=== PATIENT | male | born 1975 | race Hispanic/Latino ===

== ENCOUNTER 2016-12-19 20:41 | Observation (INO) | payer MEDICAID, OTHER ==
[2016-12-19 20:46] VITALS: BMI 19.8
[2016-12-19 20:48] VITALS: RESP 18; TEMP 98.3
[2016-12-19] MEDS ORDERED: Sodium Chloride 0.9% 1,000 ML IV STA (21:07)
[2016-12-19 21:18] LABS: ADD MANUAL DIFF? NO
[2016-12-19 21:27] LABS: BASO # 0.03 K/mm3 (0.0-2.0); BASO % 0.4 % (0.0-3.0); EOS # 0.1 (0.0-0.7); EOS % 1.2 % (1.5-5.0); GRAN # 3.81 (1.4-6.5); GRAN % 51.8 % (50.0-68.0); LYMPH # 2.7 (1.2-3.4); LYMPH % 36.9 % (22.0-35.0); MEAN CELL VOLUME 91.1 fL (80.0-105.0); MEAN CORPUSCULAR HEMOGLOBIN 31.8 pg (25.0-35.0); MEAN CORPUSCULAR HGB CONC 34.9 g/dl (31.0-37.0); MEAN PLATELET VOLUME 11.7 fl (7.0-11.0); MONO # 0.7 (0.1-0.6); MONO % 9.7 % (1.0-6.0); PLATELET COUNT 177 10^3/uL (120.0-450.0); RED CELL DISTRIBUTION WIDTH 13.2 % (11.5-14.5); WHITE BLOOD COUNT 7.4 10^3/ul (4.5-11.0)
--- NOTE | 2016-12-19 21:35 | ED PDOC ---
Arrival/HPI <Abel Finn - Last Filed: 12/19/16 22:57> - General Historian: Patient - History of Present Illness Time/Duration: 1 week Symptom Onset: Gradual Symptom Course: Worsening Quality: Aching Severity Level: 5 <Josefina Heaton - Last Filed: 12/20/16 01:50> - General Chief Complaint: GI Problem Time Seen by Provider: 12/19/16 20:54 - History of Present Illness Narrative History of Present Illness (Text): 12/19/16 21:31 40-year-old male presents today with abdominal pain nausea vomiting and diarrhea. Patient states last week he was constipated and was taking Colace and now he's having diarrhea nausea and vomiting and complaining of some mild abdominal pain. Denies fevers or chills denies urinary symptoms. Denies dizziness. Patient states that he's been feeling more fatigued than usual. No other complaints (Josefina Heaton) Past Medical History - Provider Review Nursing Documentation Reviewed: Yes - Travel History Have you recently traveled outside [place] w/in the past 3 mons?: No - Past History Past History: Non-Contributing - Infectious Disease Hx of Infectious Diseases: None - Tetanus Immunization Tetanus Immunization: Up to Date - Past Medical History Past Medical History: No Previous - Cardiac Hx Cardiac Disorders: No Hx Hypertension: No - Pulmonary Hx Respiratory Disorders: No Hx Tuberculosis: No - Neurological Hx Neurological Disorder: No HX Cerebrovascular Accident: No Hx Seizures: No - HEENT Hx HEENT Disorder: No - Renal Hx Renal Disorder: No - Endocrine/Metabolic Hx Endocrine Disorders: No - Hematological/Oncological Hx Blood Disorders: No Hx Cancer: No - Integumentary Hx Dermatological Disorder: No - Musculoskeletal/Rheumatological Hx Musculoskeletal Disorders: No Hx Falls: No - Gastrointestinal Hx Gastrointestinal Disorders: No - Genitourinary/Gynecological Hx Genitourinary Disorders: No Hx Sexually Transmitted Diseases: No - Psychiatric Hx Emotional Abuse: No Hx Physical Abuse: No Hx Substance Use: No Other/Comment: alcohol abuse - Past Surgical History Past Surgical History: No Previous - Surgical History Hx Orthopedic Surgery: Yes (L leg surgery) Other/Comment: SX FOR BROKEN NOSE .SX FOR LACERATION LIVER CAUTERIZATION - Anesthesia Hx Anesthesia: Yes Hx Anesthesia Reactions: No - Suicidal Assessment Feels Threatened In Home Enviroment: No <Josefina Heaton - Last Filed: 12/20/16 01:50> Family/Social History - Physician Review Nursing Documentation Reviewed: Yes Family/Social History: Unknown Family HX Smoking Status: Light Smoker < 10 Cigarettes Daily Hx Alcohol Use: Yes Frequency of alcohol use: Few days per week Hx Substance Use: No Hx Substance Use Treatment: No <Josefina Heaton - Last Filed: 12/20/16 01:50> Allergies/Home Meds <Abel Finn - Last Filed: 12/19/16 22:57> <Josefina Heaton - Last Filed: 12/20/16 01:50> Allergies/Adverse Reactions: Allergies No Known Allergies Allergy (Verified 09/05/16 14:22) Home Medications: Home Meds Medication Instructions Recorded Confirmed No Known Home Med 12/19/16 12/19/16 Review of Systems - Review of Systems Constitutional: Fatigue. absent: Fevers Respiratory: absent: SOB, Cough Cardiovascular: absent: Chest Pain, Palpitations Gastrointestinal: Abdominal Pain, Diarrhea, Nausea, Vomiting Genitourinary Male: absent: Dysuria, Frequency Musculoskeletal: absent: Arthralgias, Back Pain, Neck Pain Skin: absent: Rash, Pruritis Neurological: absent: Dizziness Psychiatric: absent: Anxiety, Depression <Josefina Heaton - Last Filed: 12/20/16 01:50> Physical Exam Vital Signs Reviewed: Yes Temperature: Afebrile Blood Pressure: Hypertensive Pulse: Regular Respiratory Rate: Normal Appearance: Positive for: Well-Appearing, Non-Toxic, Comfortable Pain Distress: None Mental Status: Positive for: Alert and Oriented X 3 - Systems Exam Head: Present: Atraumatic Mouth: Present: Moist Mucous Membranes Respiratory/Chest: Present: Clear to Auscultation, Good Air Exchange. No: Respiratory Distress, Accessory Muscle Use Cardiovascular: Present: Regular Rate and Rhythm, Normal S1, S2. No: Murmurs Abdomen: Present: Tenderness (minimal lower abdominal tenderness), Normal Bowel Sounds. No: Distention, Peritoneal Signs, Rebound, Guarding, McBurney's Point Tender Back: Present: Normal Inspection Upper Extremity: Present: Normal ROM Lower Extremity: Present: Normal ROM. No: Edema Neurological: Present: GCS=15 Skin: Present: Warm, Dry, Normal Color. No: Rashes Psychiatric: Present: Alert, Oriented x 3 <Josefina Heaton - Last Filed: 12/20/16 01:50> Vital Signs Temp Pulse Resp BP Pulse Ox 12/19/16 20:48 98.3 F 94 H 18 144/93 H 97 Medical Decision Making <Abel Finn - Last Filed: 12/19/16 22:57> <Josefina Heaton Jonah - Last Filed: 12/20/16 01:50> ED Course and Treatment: 12/19/16 21:35 Patient is nontoxic well appearing with stable vital signs presenting with [ severe] abdominal pain CBC wnl CMP wnl Urinalysis wnl CAT scan:FINDINGS: Lower thorax: Heart size is normal. There is a small hiatal hernia. There is minimal scarring at the lung bases. ABDOMEN: Liver: There are multiple metallic fragments in the right lobe of the liver. Gallbladder and bile ducts: unremarkable Pancreas: unremarkable Spleen: unremarkable Adrenals: unremarkable Kidneys and ureters: unremarkable Stomach and bowel: Stomach is incompletely distended which accentuates the gastric wall.. Rotation is normal. Duodenal wall and fold thickening. There is proximal jejunal wall and fold thickening. Proximal jejunum is mildly distended with fluid. Fluid distention decreases distally. Terminal ileum is mildly distended with wall thickening. Appendix is unremarkable.Colon is incompletely distended which limits evaluation. Appendix: See above. PELVIS: Bladder: The bladder is almost empty. There is bladder wall thickening. Reproductive: Seminal vesicles and prostate are unremarkable. ABDOMEN and PELVIS: Intraperitoneal space: There is no free air or free fluid. Bones/joints: There are no acute osseous abnormalities Soft tissues: unremarkable Vasculature: Vascular structures are unremarkable. Lymph nodes: There is no pathologic adenopathy. IMPRESSION: Enteritis no obstruction; bladder wall thickening more suggestive of inflammation than underdistention; metallic foreign bodies in the liver Additional findings as described above. EKG is normal sinus rhythm at 70 bpm normal axis normal intervals no ST elevations NS Iv bolus zofran for nausea Patient reassessment: pt feeling better after medications; vitals stable Discussed all results with patient in depth. Advised increasing fluids and Brat diet follow-up with the primary care physician within the next 2 days advised immediate return if symptoms worsen persist or if new concerning symptoms develop Impression: Abdominal pain, diarrhea Motrin every 6 hours as needed for pain Increase fluids Follow up with primary care physician within the next 2 days Follow up with the GI doctor within the next 2 days. Return immediately if symptoms worsen persist or if new symptoms develop: High fevers, increasing pain, vomiting, diarrhea or any other concerning symptoms develop (Josefina Heaton) - Lab Interpretations Lab Results: 12/19/16 21:10 12/19/16 21:10 Lab Results 12/19/16 21:26: Urine Color Yellow, Urine Appearance Sl cloudy, Urine pH 6.0, Ur Specific [place] 1.015, Urine Protein Negative, Urine Glucose (UA) Negative, Urine Ketones Negative, Urine Blood Negative, Urine Nitrate Negative, Urine Bilirubin Negative, Urine Urobilinogen 0.2, Ur Leukocyte Esterase Negative, Urine RBC 0 - 2, Urine WBC Negative, Ur Epithelial Cells 0 - 2, Urine Bacteria Few 12/19/16 21:10: WBC 7.4 D, RBC 4.72, Hgb 15.0, Hct 43.0, MCV 91.1, MCH 31.8, MCHC 34.9, RDW 13.2, Plt Count 177, MPV 11.7 H, Gran % 51.8, Lymph % (Auto) 36.9 H, [place] % (Auto) 9.7 H, Eos % (Auto) 1.2 L, Baso % (Auto) 0.4, Gran # 3.81 , Lymph # 2.7, [place] # 0.7 H, Eos # 0.1, Baso # 0.03 12/19/16 21:10: Sodium 133, Potassium 3.8, Chloride 92 L, Carbon Dioxide 31, Anion Gap 14, BUN 6 L, Creatinine 0.6, Est GFR ( Amer) > 60, Est GFR (Non -Af Amer) > 60, Random Glucose 96, Calcium 9.2, Total Bilirubin 1.3, AST 40, ALT 36, Alkaline Phosphatase 85, Total Protein 7.6, Albumin 4.2, Globulin 3.4, Albumin/Globulin Ratio 1.2, Lipase 50 - RAD Interpretation Radiology Orders: 12/19/16 21:13 ABD & PELVIS IV CONTRAST ONLY [CT] Stat - Medication Orders Current Medication Orders: Discontinued Medications Sodium Chloride (Sodium Chloride 0.9%) 1,000 mls @ 999 mls/hr IV .Q1H1M STA Stop: 12/19/16 22:07 Last Admin: 12/19/16 21:24 Dose: 999 mls/hr Iohexol (Omnipaque 350 100 Ml) Confirm Administered Dose 350 mg .ROUTE .STK-MED ONE Stop: 12/19/16 23:01 ED OBSERVATION <HumaAbel - Last Filed: 12/19/16 22:57> Discharge: Yes Date of observation admission: 12/19/16 Time of observation admission: 21:10 <Josefina Heaton - Last Filed: 12/20/16 01:50> - Observation admission statement Patient is being placed in observation because:: abdominal pain (Josefina Heaton) - Goals of Observation Goals of observation are:: improvement in symptoms (Josefina Heaton) - Progress Note Progress Note: 12/19/16 23:15 pt resting comfortably; no distress 12/20/16 01:35 pt in no distress. vitals stable; all results discussed with patient. (Josefina Heaton) - PA / DIRECTOR [employer] / Resident Statement MD/DO has reviewed & agrees with the documentation as recorded. <HumaAbel - Last Filed: 12/19/16 22:57> Disposition/Present on Arrival <Abel Finn - Last Filed: 12/19/16 22:57> - Present on Arrival Any Indicators Present on Arrival: No History of DVT/PE: No History of Uncontrolled Diabetes: No Urinary Catheter: No History of Decub. Ulcer: No History Surgical Site Infection Following: None - Disposition Have Diagnosis and Disposition been Completed?: Yes Disposition Time: 01:47 Patient Plan: Discharge <Josefina Heaton - Last Filed: 12/20/16 01:50> - Disposition Diagnosis: Abdominal pain, Diarrhea Disposition: HOME/ ROUTINE Patient Problems: Current Active Problems Problem Status Onset Abdominal pain Acute Diarrhea Acute Condition: GOOD Discharge Instructions (ExitCare): Acute Nausea and Vomiting (ED), Acute Diarrhea (ED), Acute Abdominal Pain (ED) Additional Instructions: Motrin every 6 hours as needed for pain Increase fluids Follow up with primary care physician within the next 2 days Follow up with the GI doctor within the next 2 days. Return immediately if symptoms worsen persist or if new symptoms develop: High fevers, increasing pain, vomiting, diarrhea or any other concerning symptoms develop Referrals: Sergio OLEA,MD Kam [Medical Doctor] - Follow up with primary Zeeshan Vega MD [Staff Provider] - Follow up with primary [facility] [place] [Outside] - Follow up with primary Forms: WORK NOTE
[2016-12-19 21:36] LABS: ALB/GLOB RATIO 1.2 (1.1-1.8); ALKALINE PHOSPHATASE 85 U/L (38-133); ALT/SGPT 36 U/L (7-56); AST/SGOT 40 U/L (15-59); BILIRUBIN,TOTAL 1.3 mg/dL (0.2-1.3); BLOOD UREA NITROGEN 6 mg/dL (7-21); CALCIUM 9.2 mg/dL (8.4-10.5); CARBON DIOXIDE 31 mmol/L (21-33); CHLORIDE 92 mmol/L (98-107); GFR AFRICAN-AMERICAN > 60; GLUCOSE,RANDOM 96 mg/dL (70-110); LIPASE 50 U/L (23-300); POTASSIUM 3.8 mmol/L (3.6-5.0); SODIUM 133 mmol/L (132-148); TOTAL PROTEIN 7.6 g/dL (5.8-8.3)
[2016-12-19 21:55] LABS: URINE BILIRUBIN NEGATIVE (NEGATIVE); URINE GLUCOSE (UA) NEGATIVE (NEGATIVE); URINE KETONE NEGATIVE (NEGATIVE); URINE UROBILINOGEN 0.2 E.U./dL (<1 E.U./dL)
[2016-12-19 21:59] LABS: URINE APPEARANCE SL CLOUDY (CLEAR); URINE COLOR YELLOW (YELLOW)
[2016-12-19 22:31] LABS: URINE BLOOD NEGATIVE (NEGATIVE); URINE LEUKOCYTE ESTERASE NEGATIVE Leu/uL (NEGATIVE); URINE PROTEIN NEGATIVE mg/dL (<30 mg/dL)
[2016-12-19 22:33] LABS: URINE BACTERIA FEW (NEG); URINE EPITHELIAL CELLS 0 - 2 /hpf (0-5); URINE RBC 0 - 2 /hpf (0-2); URINE WBC NEGATIVE /hpf (0-6)
[2016-12-19] MEDS ORDERED: Iohexol 350 MG/100 ML VIAL ONE (23:00)
--- NOTE | 2016-12-20 01:18 | CT ---
EXAM: CT Abdomen and Pelvis With Intravenous Contrast CLINICAL HISTORY: 40 years old, male; Signs and symptoms; Vomiting; Additional info: Abd pain/vomiting/diarrhea TECHNIQUE: Axial computed tomography images of the abdomen and pelvis with intravenous contrast. This CT exam was performed using one or more of the following dose reduction techniques: automated exposure control, adjustment of the mA and/or kV according to patient size, and/or use of iterative reconstruction technique. Coronal and sagittal reformatted images were created and reviewed. CONTRAST: 96 mL of OMNI 350 administered intravenously. EXAM DATE/TIME: 12/19/2016 9:13 PM COMPARISON: There are no prior studies for comparison. FINDINGS: Lower thorax: Heart size is normal. There is a small hiatal hernia. There is minimal scarring at the lung bases. ABDOMEN: Liver: There are multiple metallic fragments in the right lobe of the liver. Gallbladder and bile ducts: unremarkable Pancreas: unremarkable Spleen: unremarkable Adrenals: unremarkable Kidneys and ureters: unremarkable Stomach and bowel: Stomach is incompletely distended which accentuates the gastric wall.. Rotation is normal. Duodenal wall and fold thickening. There is proximal jejunal wall and fold thickening. Proximal jejunum is mildly distended with fluid. Fluid distention decreases distally. Terminal ileum is mildly distended with wall thickening. Appendix is unremarkable.Colon is incompletely distended which limits evaluation. Appendix: See above. PELVIS: Bladder: The bladder is almost empty. There is bladder wall thickening. Reproductive: Seminal vesicles and prostate are unremarkable. ABDOMEN and PELVIS: Intraperitoneal space: There is no free air or free fluid. Bones/joints: There are no acute osseous abnormalities Soft tissues: unremarkable Vasculature: Vascular structures are unremarkable. Lymph nodes: There is no pathologic adenopathy. IMPRESSION: Enteritis no obstruction; bladder wall thickening more suggestive of inflammation than underdistention; metallic foreign bodies in the liver Additional findings as described above.
[2016-12-20 01:59] VITALS: BP 118/70; PULSE 70; O2SAT 99
--- NOTE | 2016-12-20 12:07 | CARD ---
APPROVED REPORT EKG Measurement Heart [id number] <Conclusion> Normal sinus rhythm Possible Left atrial enlargement Borderline ECG
== END 2016-12-20 01:49 | disposition home or self-care (01) ==
LOC: ED 20:41 → EROBSV 21:10
PROVIDERS: ADMIT Emergency Medicine; ATTEND Emergency Medicine
DX: R10.9 Unspecified abdominal pain (principal); R19.7 Diarrhea, unspecified; F17.210 Nicotine dependence, cigarettes, uncomplicated
CPT/HCPCS: 74177; 80053; 81001; 83690; 85025; 87086; 93005; 96360; 99284; G0378; J7040; Q9967

== ENCOUNTER 2017-01-09 19:11 | Emergency (ER) | payer MEDICAID, OTHER ==
[2017-01-09 19:26] VITALS: BMI 19.1
[2017-01-09] MEDS ORDERED: Sodium Chloride 0.9% 1,000 ML IV STA (19:26)
[2017-01-09 20:36] LABS: ALB/GLOB RATIO 1.3 (1.1-1.8); ALBUMIN 4.2 g/dL (3.0-4.8); ALT/SGPT 29 U/L (7-56); AST/SGOT 33 U/L (15-59); BLOOD UREA NITROGEN 8 mg/dL (7-21); CALCIUM 9.4 mg/dL (8.4-10.5); GFR AFRICAN-AMERICAN > 60; GFR NON-AFRICAN AMERICAN > 60
[2017-01-09 20:42] LABS: HEMOGLOBIN 15.6 gm/dL (14.0-18.0); RBC 5.06 10^6/uL (3.5-6.1); WHITE BLOOD COUNT 6.9 10^3/ul (4.5-11.0)
[2017-01-09 20:43] LABS: BASO # 0.02 K/mm3 (0.0-2.0); BASO % 0.3 % (0.0-3.0); EOS # 0.1 (0.0-0.7); EOS % 1.5 % (1.5-5.0); GRAN # 3.94 (1.4-6.5); GRAN % 57.5 % (50.0-68.0); LYMPH # 2.2 (1.2-3.4); LYMPH % 31.4 % (22.0-35.0); MEAN CELL VOLUME 89.5 fL (80.0-105.0); MEAN CORPUSCULAR HEMOGLOBIN 30.8 pg (25.0-35.0); MEAN CORPUSCULAR HGB CONC 34.4 g/dl (31.0-37.0); MEAN PLATELET VOLUME 12.3 fl (7.0-11.0); MONO # 0.6 (0.1-0.6); MONO % 9.3 % (1.0-6.0); PLATELET COUNT 177 10^3/uL (120.0-450.0); RED CELL DISTRIBUTION WIDTH 14.3 % (11.5-14.5)
--- NOTE | 2017-01-09 20:43 | ED PDOC ---
Arrival/HPI - General Chief Complaint: Medical Clearance Time Seen by Provider: 01/09/17 19:13 Historian: Patient - History of Present Illness Narrative History of Present Illness (Text): 01/09/17 20:39 41yr old male presents today brought in by police after shoplifting. pt states he was shoplifting because he doesnt have any money for food and hasnt eaten in 4-5 days. pt denies fever/chills. no abdominal pain. no cp or sob. no vomiting/ diarrhea. pt states he just feeling malnorished. admits to smoking and alcohol use in the past. no other complaints. Time/Duration: Prior to Arrival Symptom Onset: Gradual Symptom Course: Unchanged Past Medical History - Provider Review Nursing Documentation Reviewed: Yes - Travel History Have you recently traveled outside [place] w/in the past 3 mons?: No - Past History Past History: Non-Contributing - Infectious Disease Hx of Infectious Diseases: None - Tetanus Immunization Tetanus Immunization: Up to Date - Reproductive Currently : No - Past Medical History Past Medical History: No Previous - Cardiac Hx Cardiac Disorders: No Hx Hypertension: No - Pulmonary Hx Respiratory Disorders: No Hx Tuberculosis: No - Neurological Hx Neurological Disorder: No HX Cerebrovascular Accident: No Hx Seizures: No - HEENT Hx HEENT Disorder: No - Renal Hx Renal Disorder: No - Endocrine/Metabolic Hx Endocrine Disorders: No - Hematological/Oncological Hx Blood Disorders: No Hx Cancer: No - Integumentary Hx Dermatological Disorder: No - Musculoskeletal/Rheumatological Hx Musculoskeletal Disorders: No Hx Falls: No - Gastrointestinal Hx Gastrointestinal Disorders: No - Genitourinary/Gynecological Hx Genitourinary Disorders: No Hx Sexually Transmitted Diseases: No - Psychiatric Hx Psychophysiologic Disorder: Yes Hx Emotional Abuse: No Hx Post Traumatic Stress Disorder: Yes Hx Physical Abuse: No Hx Substance Use: No Other/Comment: alcohol abuse - Past Surgical History Past Surgical History: No Previous - Surgical History Hx Orthopedic Surgery: Yes (L leg surgery) Other/Comment: SX FOR BROKEN NOSE .SX FOR LACERATION LIVER CAUTERIZATION - Anesthesia Hx Anesthesia: Yes Hx Anesthesia Reactions: No - Suicidal Assessment Feels Threatened In Home Enviroment: No Family/Social History - Physician Review Nursing Documentation Reviewed: Yes Family/Social History: Unknown Family HX Smoking Status: Light Smoker < 10 Cigarettes Daily Hx Alcohol Use: Yes Frequency of alcohol use: Socially Hx Substance Use: No Hx Substance Use Treatment: No Allergies/Home Meds Allergies/Adverse Reactions: Allergies No Known Allergies Allergy (Verified 01/09/17 19:26) Home Medications: Home Meds Medication Instructions Recorded Confirmed No Known Home Med 12/19/16 01/09/17 Review of Systems - Review of Systems Constitutional: absent: Fatigue, Fevers ENT: absent: Sore Throat Respiratory: absent: SOB, Cough Cardiovascular: absent: Chest Pain, Palpitations Gastrointestinal: absent: Abdominal Pain, Nausea, Vomiting Genitourinary Male: absent: Dysuria, Frequency, Hematuria Musculoskeletal: absent: Arthralgias, Back Pain, Neck Pain Skin: absent: Rash, Pruritis Neurological: absent: Headache, Dizziness Psychiatric: absent: Anxiety, Depression, Suicidal Ideation Physical Exam Vital Signs Reviewed: Yes Vital Signs Temp Pulse Resp BP Pulse Ox 01/09/17 20:50 99 H 16 124/63 99 01/09/17 19:17 99.4 F 121 H 18 116/81 94 L Temperature: Afebrile Blood Pressure: Normal Pulse: Tachycardic Respiratory Rate: Normal Appearance: Positive for: Well-Appearing, Non-Toxic, Comfortable Pain Distress: None Mental Status: Positive for: Alert and Oriented X 3 - Systems Exam Head: Present: Atraumatic Mouth: Present: Moist Mucous Membranes Neck: Present: Normal Range of Motion Respiratory/Chest: Present: Clear to Auscultation, Good Air Exchange. No: Respiratory Distress, Accessory Muscle Use Cardiovascular: Present: Regular Rate and Rhythm, Normal S1, S2. No: Murmurs Abdomen: Present: Normal Bowel Sounds. No: Tenderness, Distention, Peritoneal Signs, Rebound, Guarding Back: Present: Normal Inspection Upper Extremity: Present: Normal ROM Lower Extremity: Present: Normal ROM Neurological: Present: GCS=15 Skin: Present: Warm, Dry, Normal Color. No: Rashes Psychiatric: Present: Alert, Oriented x 3 Medical Decision Making ED Course and Treatment: 01/09/17 20:41 41yr old male presents today c/o hunger after not eating for 4-5 days. cbc wnl cmp k:3.2 cpk; wnl NS iv bolus. potassium give po 01/09/17 22:04 pt feeling better; ambulating with steady gait; non toxic; well appearing; no distress. stable vitals. will d/c home to f/u with clinic. advised return if symptoms worsen,persist or if new symptoms develop. impression; hunger, hypokalemia increase fluids follow up with the primary care physician within the next 2 days return if symptoms worsen,persist or if new symptoms develop. - Lab Interpretations Lab Results: 01/09/17 20:00 01/09/17 20:00 Lab Results 01/09/17 20:00: WBC 6.9, RBC 5.06, Hgb 15.6, Hct 45.3, MCV 89.5, MCH 30.8, MCHC 34.4, RDW 14.3, Plt Count 177, MPV 12.3 H, Gran % 57.5, Lymph % (Auto) 31.4, [place] % (Auto) 9.3 H, Eos % (Auto) 1.5, Baso % (Auto) 0.3, Gran # 3.94, Lymph # 2.2, [place] # 0.6, Eos # 0.1, Baso # 0.02 01/09/17 20:00: Sodium 139, Potassium 3.2 L, Chloride 99, Carbon Dioxide 24, Anion Gap 19, BUN 8, Creatinine 0.7, Est GFR ( Amer) > 60, Est GFR (Non- Af Amer) > 60, Random Glucose 121 H, Calcium 9.4, Total Bilirubin 0.8, AST 33, ALT 29, Alkaline Phosphatase 71, Total Creatine Kinase 81, Total Protein 7.3, Albumin 4.2, Globulin 3.2, Albumin/Globulin Ratio 1.3 - Medication Orders Current Medication Orders: Discontinued Medications Sodium Chloride (Sodium Chloride 0.9%) 1,000 mls @ 999 mls/hr IV .Q1H1M STA Stop: 01/09/17 20:26 Last Admin: 01/09/17 20:06 Dose: 999 mls/hr Potassium Chloride (K-Dur 20 Meq Er Tab) 40 meq PO STAT STA Stop: 01/09/17 22:01 Disposition/Present on Arrival - Present on Arrival Any Indicators Present on Arrival: No History of DVT/PE: No History of Uncontrolled Diabetes: No Urinary Catheter: No History of Decub. Ulcer: No History Surgical Site Infection Following: None - Disposition Have Diagnosis and Disposition been Completed?: Yes Diagnosis: Hunger, Hypokalemia Disposition: HOME/ ROUTINE Disposition Time: 22:06 Patient Plan: Discharge Patient Problems: Current Active Problems Problem Status Onset Hunger Acute Hypokalemia Acute Condition: GOOD Additional Instructions: increase fluids follow up with the primary care physician within the next 2 days return if symptoms worsen,persist or if new symptoms develop. Referrals: Aleksandr Chin MD [Primary Care Provider] - Follow up with primary
[2017-01-09 20:50] VITALS: RESP 16
[2017-01-09] MEDS ORDERED: Potassium Chloride 20 mEq ER Tab PO STA (22:00)
[2017-01-09 22:23] VITALS: BP 107/56; PULSE 91; TEMP 98.3; O2SAT 96
== END 2017-01-09 22:23 | disposition home or self-care (01) ==
LOC: ED 19:11
DX: T73.0XXA Starvation, initial encounter (principal); X58.XXXA Exposure to other specified factors, initial encounter; E87.6 Hypokalemia
CPT/HCPCS: 80053; 82550; 85025; 96360; 99283; J7040

== ENCOUNTER 2017-02-23 15:00 | Emergency (ER) | payer MEDICAID, OTHER ==
[2017-02-23 15:01] VITALS: BMI 19.1
[2017-02-23 15:10] VITALS: RESP 20
[2017-02-23] MEDS ORDERED: Sodium Chloride 0.9% 1,000 ML IV STA (15:39)
--- NOTE | 2017-02-23 15:44 | ED PDOC ---
Arrival/HPI - General Chief Complaint: Flu-like Symptoms Time Seen by Provider: 02/23/17 15:02 Historian: Patient - History of Present Illness Time/Duration: Other (4-5 days) Symptom Onset: Gradual Symptom Course: Unchanged Severity Level: Moderate Activities at Onset: Rest Associated Symptoms (Text): 02/23/17 15:41 Patient complains of a 4 to five-day history of cough congestion URI feeling feverish chills generalized myalgias and arthralgias with diarrhea. No abdominal pain or vomiting. No genitourinary symptoms. No travel or exposure. Past Medical History - Past History Past History: Non-Contributing - Infectious Disease Hx of Infectious Diseases: None - Tetanus Immunization Tetanus Immunization: Up to Date - Reproductive Currently : No - Past Medical History Past Medical History: No Previous - Cardiac Hx Cardiac Disorders: No Hx Hypertension: No - Pulmonary Hx Respiratory Disorders: No Hx Tuberculosis: No - Neurological Hx Neurological Disorder: No HX Cerebrovascular Accident: No Hx Seizures: No - HEENT Hx HEENT Disorder: No - Renal Hx Renal Disorder: No - Endocrine/Metabolic Hx Endocrine Disorders: No - Hematological/Oncological Hx Blood Disorders: No Hx Cancer: No - Integumentary Hx Dermatological Disorder: No - Musculoskeletal/Rheumatological Hx Musculoskeletal Disorders: No Hx Falls: No - Gastrointestinal Hx Gastrointestinal Disorders: No - Genitourinary/Gynecological Hx Genitourinary Disorders: No Hx Sexually Transmitted Diseases: No - Psychiatric Hx Psychophysiologic Disorder: Yes Hx Emotional Abuse: No Hx Post Traumatic Stress Disorder: Yes Hx Physical Abuse: No Hx Substance Use: No Other/Comment: alcohol abuse - Past Surgical History Past Surgical History: No Previous - Surgical History Hx Orthopedic Surgery: Yes (L leg surgery) Other/Comment: SX FOR BROKEN NOSE .SX FOR LACERATION LIVER CAUTERIZATION - Anesthesia Hx Anesthesia: Yes Hx Anesthesia Reactions: No Hx Malignant Hyperthermia: No - Suicidal Assessment Feels Threatened In Home Enviroment: No Family/Social History - Physician Review Nursing Documentation Reviewed: Yes Family/Social History: Unknown Family HX Smoking Status: Light Smoker < 10 Cigarettes Daily Hx Alcohol Use: Yes Frequency of alcohol use: Daily Hx Substance Use: No Hx Substance Use Treatment: No Allergies/Home Meds Allergies/Adverse Reactions: Allergies No Known Allergies Allergy (Verified 02/23/17 15:10) Review of Systems - Physician Review All systems were reviewed & negative as marked: Yes - Review of Systems Constitutional: Fatigue, Fevers Respiratory: Cough. absent: SOB, Sputum, Wheezing Cardiovascular: Normal. absent: Chest Pain, Palpitations, Syncope Gastrointestinal: Diarrhea. absent: Abdominal Pain, Nausea, Vomiting Genitourinary Male: absent: Dysuria, Frequency, Hematuria Neurological: absent: Headache, Dizziness Physical Exam Vital Signs Temp Pulse Resp BP Pulse Ox 02/23/17 17:12 98 F 75 20 123/71 99 02/23/17 15:06 98.9 F 101 H 20 123/93 H 98 Temperature: Afebrile Blood Pressure: Normal Pulse: Regular Respiratory Rate: Normal Appearance: Positive for: Well-Appearing, Non-Toxic, Comfortable, Uncomfortable , Other (Smells of alcohol) Pain Distress: None Mental Status: Positive for: Alert and Oriented X 3 - Systems Exam Head: Present: Atraumatic, Normocephalic Pupils: Present: PERRL Extroacular Muscles: Present: EOMI Conjunctiva: Present: Normal Ears: Present: NORMAL TM, Normal Canal. No: Erythema Mouth: Present: Moist Mucous Membranes Pharnyx: No: ERYTHEMA, EXUDATE, TONSILS ENLARGED Nose (Internal): Present: Other (Congested) Neck: Present: Normal Range of Motion Respiratory/Chest: Present: Clear to Auscultation, Good Air Exchange, Decreased Breath Sounds. No: Respiratory Distress, Accessory Muscle Use Cardiovascular: Present: Regular Rate and Rhythm, Normal S1, S2. No: Murmurs Abdomen: Present: Normal Bowel Sounds. No: Tenderness, Distention, Peritoneal Signs, Rebound, Guarding Upper Extremity: Present: Normal Inspection. No: Cyanosis, Edema Lower Extremity: Present: Normal Inspection. No: Edema Neurological: Present: GCS=15, CN II-XII Intact, Speech Normal, Motor Func Grossly Intact Skin: Present: Warm, Dry, Normal Color. No: Rashes Medical Decision Making ED Course and Treatment: 02/23/17 16:56 Work up is unrevealing. Patient wants antibiotics and a note for work. 02/23/17 17:36 Given information for alcoholics. - Lab Interpretations Lab Results: 02/23/17 15:50 02/23/17 15:50 Lab Results 02/23/17 15:50: Alcohol, Quantitative 161 H 02/23/17 15:50: Sodium 144, Potassium 4.2, Chloride 104, Carbon Dioxide 28, Anion Gap 16, BUN 4 L, Creatinine 0.6, Est GFR ( Amer) > 60, Est GFR (Non -Af Amer) > 60, Random Glucose 90, Calcium 9.3, Magnesium 2.3 H, Total Bilirubin 0.5, AST 37, ALT 37, Alkaline Phosphatase 68, Total Protein 7.3, Albumin 4.2, Globulin 3.1, Albumin/Globulin Ratio 1.4 02/23/17 15:50: WBC 7.8, RBC 5.19, Hgb 16.4, Hct 46.9, MCV 90.4, MCH 31.6, MCHC 35.0, RDW 14.3, Plt Count 170, MPV 11.5 H, Gran % 56.6, Lymph % (Auto) 35.0, [place] % (Auto) 7.2 H, Eos % (Auto) 0.8 L, Baso % (Auto) 0.4, Gran # 4.39, Lymph # 2.7, [place] # 0.6, Eos # 0.1, Baso # 0.03 02/23/17 15:00: Influenza Typ A,B (EIA) Negative for flu a/b - RAD Interpretation Radiology Orders: 02/23/17 15:39 CHEST PORTABLE [RAD] Stat Chest 1 view shows no infiltrate effusion or cardiomegaly Reed Fixer: ED Physician - Medication Orders Current Medication Orders: Discontinued Medications Sodium Chloride (Sodium Chloride 0.9%) 1,000 mls @ 1,000 mls/hr IV .Q1H STA Stop: 02/23/17 16:38 Last Admin: 02/23/17 16:05 Dose: 1,000 mls/hr Disposition/Present on Arrival - Present on Arrival Any Indicators Present on Arrival: No History of DVT/PE: No History of Uncontrolled Diabetes: No Urinary Catheter: No History of Decub. Ulcer: No History Surgical Site Infection Following: None - Disposition Have Diagnosis and Disposition been Completed?: Yes Diagnosis: Alcohol abuse, Viral illness, Diarrhea, Bronchitis Disposition: HOME/ ROUTINE Disposition Time: 16:57 Patient Plan: Discharge Condition: STABLE Discharge Instructions (ExitCare): Acute Bronchitis (ED), Viral Syndrome (ED), Alcohol Dependence (ED), Alcohol Use Disorder (ED) Additional Instructions: Symptomatic treatment. Advil as directed on bottle as needed. Follow up with PMD. Follow up in ER as needed. Prescriptions: Amoxicillin [Amoxil 250 mg Cap] 250 mg PO TID #21 cap Forms: [employer] (Portuguese), WORK NOTE
[2017-02-23 16:03] LABS: BASO # 0.03 K/mm3 (0.0-2.0); BASO % 0.4 % (0.0-3.0); EOS # 0.1 (0.0-0.7); EOS % 0.8 % (1.5-5.0); GRAN # 4.39 (1.4-6.5); GRAN % 56.6 % (50.0-68.0); HEMATOCRIT 46.9 % (42.0-52.0); LYMPH # 2.7 (1.2-3.4); MEAN CELL VOLUME 90.4 fl (80.0-105.0); MEAN CORPUSCULAR HEMOGLOBIN 31.6 pg (25.0-35.0); MEAN PLATELET VOLUME 11.5 fl (7.0-11.0); MONO # 0.6 (0.1-0.6); MONO % 7.2 % (1.0-6.0); RED CELL DISTRIBUTION WIDTH 14.3 % (11.5-14.5); WHITE BLOOD COUNT 7.8 10^3/ul (4.5-11.0)
[2017-02-23 16:16] LABS: ALB/GLOB RATIO 1.4 (1.1-1.8); ALKALINE PHOSPHATASE 68 U/L (38-126); ALT/SGPT 37 U/L (7-56); AST/SGOT 37 U/L (17-59); BILIRUBIN,TOTAL 0.5 mg/dL (0.2-1.3); BLOOD UREA NITROGEN 4 mg/dL (7-21); CALCIUM 9.3 mg/dL (8.4-10.5); CARBON DIOXIDE 28 mmol/L (21-33); CHLORIDE 104 mmol/L (98-107); GFR AFRICAN-AMERICAN > 60; GLUCOSE,RANDOM 90 mg/dL (70-110); MAGNESIUM 2.3 mg/dL (1.7-2.2); POTASSIUM 4.2 mmol/L (3.6-5.0); SODIUM 144 mmol/L (132-148); TOTAL PROTEIN 7.3 g/dL (5.8-8.3)
--- NOTE | 2017-02-23 16:23 | RAD ---
HISTORY: cough COMPARISON: None available. TECHNIQUE: Chest, one view. FINDINGS: LUNGS: No focal consolidation. 8 mm nodular density at the right upper lobe at the level of the 4th posterior rib favored to reflect confluence of shadows; pulmonary nodule cannot be entirely excluded. PLEURA: No significant pleural effusion identified. No definite pneumothorax . CARDIOVASCULAR: The cardiomediastinal silhouette appears within normal limits of size. OSSEOUS STRUCTURES: No acute osseous abnormality identified.Chronic appearing right 10th rib fracture deformity. VISUALIZED UPPER ABDOMEN: Metallic fragments are noted within the right upper quadrant. OTHER FINDINGS: None. IMPRESSION: No acute findings. 8 mm nodular density at the right upper lobe at the level of the 4th posterior rib favored to reflect confluence of shadows; pulmonary nodule cannot be entirely excluded.
[2017-02-23 17:13] VITALS: BP 123/71; PULSE 75; TEMP 98; O2SAT 99
== END 2017-02-23 17:13 | disposition home or self-care (01) ==
LOC: ED 15:00
DX: J40 Bronchitis, not specified as acute or chronic (principal); B34.9 Viral infection, unspecified; F10.10 Alcohol abuse, uncomplicated; R19.7 Diarrhea, unspecified
CPT/HCPCS: 71010; 80053; 80320; 83735; 85025; 87804; 96360; 99284; J7040